=== PATIENT | female | born 1945 | race African-American/Black ===

== ENCOUNTER → 2016-12-10 | Outpatient (CLI) | payer OTHER ==
--- NOTE | 2016-12-10 12:19 | RAD ---
DATE: 12/10/16 EXAM: DIGITAL SCREEN BILAT W/CAD HISTORY: Routine screening COMPARISON: 10/22/15 This study was interpreted with the benefit of Computerized Aided Detection (CAD). TECHNIQUE: Routine CC and MLO views of both breasts are obtained. FINDINGS: Breast Density: FATTY The breast parenchyma is primarily fatty replaced. Breast parenchyma level density A.. No suspicious clustered microcalcifications or architectural distortion seen. Skin and nipples are intact IMPRESSION: Negative exam BI-RADS CATEGORY: 1 NEGATIVE RECOMMENDED FOLLOW-UP: 12M 12 MONTH FOLLOW-UP PQRS compliance statement: Patient information was entered into a reminder system with a target due date for the next mammogram. Mammography is a sensitive method for finding small breast cancers, but it does not detect them all and is not a substitute for careful clinical examination. A negative mammogram does not negate a clinically suspicious finding and should not result in delay in biopsying a clinically suspicious abnormality. "Our facility is accredited by the [employer] Mammography Program."
== END | disposition home or self-care (01) ==
LOC: MAMMO 10:46
PROVIDERS: ATTEND Family Medicine
DX: Z12.31 Encounter for screening mammogram for malignant neoplasm of breast (principal)
CPT/HCPCS: G0202; 77067

== ENCOUNTER 2021-05-14 07:59 | Outpatient (CLI) | payer OTHER, MEDICAID ==
[~2021-05-14] VITALS: Ht 160 cm; Wt 63.6 kg
[2021-05-14] VITALS (11 sets, daily range): BP systolic 91–111; BP diastolic 48–65
[2021-05-14] MEDS ORDERED: IODIXANOL 320 MG/ML 100 ML VIAL. ONE (08:05)
[2021-05-14] MEDS ORDERED: LIDOCAINE 1% Multi-Dose 20 ML VIAL. ONE (08:06)
[2021-05-14] MEDS ORDERED: fentaNYL PF VIAL 100 MCG/2 ML VIAL ONE (08:15)
[2021-05-14] MEDS ORDERED: MIDAZOLAM HCL/PF 5 MG/5 ML VIAL. ONE (08:15)
[2021-05-14] MEDS ORDERED: HEPARIN for IV BOLUS 10,000 UNIT/10 ML VIAL. ONE (08:16)
[2021-05-14 08:53] LABS: HEMATOCRIT 40.7 % (36.0-47.0); HEMOGLOBIN 13.1 g/dL (12.0-15.5); RED BLOOD COUNT 4.43 x10^6/uL (3.50-5.40); RED CELL DISTRIBUTION WIDTH 13.7 % (11.5-14.5); WHITE BLOOD COUNT 9.9 x10^3/uL (4.0-11.0)
[2021-05-14] MEDS ORDERED: BRIM5DRO2 OP (08:53)
[2021-05-14] MEDS ORDERED: ESOM20CA PO (08:53)
[2021-05-14] MEDS ORDERED: ASPI-630 PO (08:53)
[2021-05-14] MEDS ORDERED: trulicity (08:53)
[2021-05-14] MEDS ORDERED: LOVA20TA2 PO (08:53)
[2021-05-14] MEDS ORDERED: SITA50TA PO (08:53)
[2021-05-14] MEDS ORDERED: BIMA2.5D EACHEYE (08:53)
[2021-05-14] MEDS ORDERED: BUDE10.2 IH (08:53)
[2021-05-14] MEDS ORDERED: IBUP-1060 PO (08:53)
[2021-05-14] MEDS ORDERED: PRED-220 PO (08:53)
[2021-05-14] MEDS ORDERED: IPRA3AMP29 NEB (08:53)
[2021-05-14] MEDS ORDERED: CYCL1DRO EACHEYE (08:53)
[2021-05-14] MEDS ORDERED: GLIP5TAB10 PO (08:53)
[2021-05-14] MEDS ORDERED: FEXO180T81 PO (08:53)
[2021-05-14] MEDS ORDERED: VERAPAMIL 5 MG/2 ML VIAL. ONE (09:05)
[2021-05-14] MEDS ORDERED: NITROGLYCERIN 200 MCG/2 ML SYRINGE FOR CATH/VASC LAB. ONE (09:05)
[2021-05-14 09:08] LABS: PROTHROMBIN TIME PATIENT 11.9 SEC (11.7-14.0)
[2021-05-14 09:13] LABS: CALCIUM 8.7 mg/dL (8.5-10.1); CREATININE 1.3 mg/dL (0.6-1.0); GFR 48.3
[2021-05-14] MEDS ORDERED: LIDOCAINE 1% PF 2 ML VIAL. INJ ONE (09:15)
[2021-05-14] MEDS ORDERED: fentaNYL PF VIAL 100 MCG/2 ML VIAL IV ONE (09:15)
[2021-05-14] MEDS ORDERED: NITROGLYCERIN 200 MCG/2 ML SYRINGE FOR CATH/VASC LAB. IART ONE (09:15)
[2021-05-14] MEDS ORDERED: HEPARIN for IV BOLUS 10,000 UNIT/10 ML VIAL. IART ONE (09:15)
[2021-05-14] MEDS ORDERED: IODIXANOL 320 MG/ML 100 ML VIAL. IART ONE (09:15)
[2021-05-14] MEDS ORDERED: VERAPAMIL 5 MG/2 ML VIAL. IART ONE (09:15)
[2021-05-14] MEDS ORDERED: MIDAZOLAM HCL/PF 5 MG/5 ML VIAL. IV ONE (09:15)
[2021-05-14] MEDS ORDERED: LIDOCAINE 1% Multi-Dose 20 ML VIAL. INJ ONE (10:15)
--- NOTE | 2021-05-14 10:17 | CARD ---
MR#: [id number] Date of Study: 05/14/2021 Ordering Physician: GERARD ASHTON, Referring Physician: GERARD ASHTON Tech: Julisa Alexander RT(R) APPROVED REPORT Patient StatusOUT-PATIENT Contact Clerk: Julisa Alexander RT(R) Procedure(s) performed: Aortogram with bilateral lower extremity runoff via right transradial approac h MODERATE SEDATION TIME: 40 MINUTES FLUORO TIME: 3.9 MIN DOSE: 30.1 GYCM2 CONTRAST: 68CC VISI INDICATION FOR PROCEDURE The indication(s) include : Leg pain and peripheral artery disease noted on arterial duplex scan. CASE TECHNIQUE After explaining the risks, benefits, and alternative options, informed consent was obtained from the patient. IV conscious sedation was used throughout procedure with appropriate monitoring and was per formed in the presence of a registered nurse who was an independent trained observer other than the lj dowling performing the procedure. During this case, Fluoroscopy and low osmolar contrast were used f or imaging. Specimen(s) Removed: No Estimated Blood loss: 15 cc's. PROCEDURE NARRATIVE After explaining the risk, benefits and alternative options, informed consent was obtained for hammad t. Patient was brought to the cardiac [facility] and her right wrist was prepped and draped in the usua l fashion after confirming a positive modified Christiano's test. Arterial access was obtained in the [facility] radial artery and a 6 Greek sheath was inserted. 4 Greek R2P PVI multicurve catheter was then adv anced under fluoroscopy guidance and with the tip positioned in the distal descending aorta, aorto il iac angiography was performed. The tip was then advanced over the wire into the right common femoral artery and selective right lower extremity angiography was performed. The catheter was then withdrawn and advanced into the left common femoral artery and selective left lower extremity angiography was performed. Patient tolerated the procedure well. Hemostasis was achieved using TR band. There were no immediate complications. FINDINGS 1. No significant stenosis involving the distal descending aorta 2. The right common iliac artery showed 20% proximal segment stenosis. The left common iliac and bila teral external iliac arteries did not show any significant stenosis. 3. No significant stenosis involving bilateral common femoral arteries 4. The right superficial femoral artery showed 30% stenosis in the mid and distal segments. The left superficial femoral artery showed 30% stenosis in the distal segment. 5. The right popliteal artery showed 30% stenosis. The left popliteal artery did not show any signifi cant stenosis. 6. The right anterior tibial and peroneal arteries were patent without any significant stenosis. The posterior tibial artery showed severe diffuse disease in the mid and distal segments. 7. There is three vessel runoff below the knee left lower extremity. Of note, there is sluggish flow both lower extremities probably secondary to microvascular disease. Conclusion No significant lesions needing intervention were noted. Signed by : Gerard Ashton, Electronically Approved : 05/14/2021 10:16:58
--- NOTE | 2021-05-14 11:30 | NUR ---
Echo at bedside
--- NOTE | 2021-05-14 12:30 | NUR ---
Discharge Note: BRIGID FRIEDMAN Discharge instructions and discharge home medications reviewed with Patient and a copy given. All questions have been answered and understanding verbalized. Dressing to R wrist clean and dry, armboard remains in place The following instructions and handouts were given: sedation, radial site care Discontinued lines and drains: Peripheral IV intact. Patient discharged to Home or Self Care with family member via Wheelchair AVA RN Addendum: 05/14/21 at 1233 by KITTY ROBERTS RN Amended: Links added.
--- NOTE | 2021-05-14 12:40 | CARD ---
MR#: [id number] Date of Study: 05/14/2021 Ordering Physician: GERARD ASHTON, Referring Physician: GERARD ASHTON, Tech: Isabell Kilgore [facility] APPROVED REPORT EXAM: Two-dimensional and M-mode echocardiogram with Doppler and color Doppler. Other Information Quality : AverageHR: 64bpm INDICATION COPD Dyspnea RISK FACTORS Hyperlipidemia Diabetes Smoking 2D DIMENSIONS Left Atrium(2D)2.6 (1.6-4.0cm)IVSd1.2 (0.7-1.1cm) Aortic Root(2D)3.3 (2.0-3.7cm)LVDd4.4 (3.9-5.9cm) LVOT Diameter2.1 (1.8-2.4cm)PWd1.0 (0.7-1.1cm) LVDs2.9 (2.5-4.0cm)FS (%) 34.1 % SV57.0 mlLVEF(%)63.3 (>50%) Aortic Valve AoV Peak Ty.105.8cm/sAoV VTI24.0cm AO Peak GR.4.5mmHgLVOT VTI 19.63cm AO Mean GR.3mmHg Mitral Valve MV E Fgwxipia96.1cm/sMV E Peak Gr.3mmHg MV DECEL [id number] A Vvojjhuf18.0cm/s MV E Mean Gr.1mmHgE/A Ratio0.9 TDI Lateral E' P. V6.37cm/sMedial E' P. V5.60cm/s E/Lateral E'10.2E/Medial E'11.6 Tricuspid Valve TR P. Pgvpvfpj132mt/sRAP [id number] TR Peak Gr.09afUkZGTG63qxKg Pulmonary Vein S1 Eqtjeqxq01.8cm/sS2 Hjbpdtta32.23cm/s D2 Drhabpsk60.2cm/sPVa [id number] LEFT VENTRICLE The left ventricle is normal size. There is borderline to mild concentric left ventricular hypertroph y. The left ventricular systolic function is normal. The Ejection Fraction is 55-60%. There is normal LV segmental wall motion. Transmitral Doppler flow pattern is Grade I-abnormal relaxation pattern. RIGHT VENTRICLE The right ventricle is normal size. There is normal right ventricular wall thickness. The right ventr icular systolic function is normal. ATRIA The left atrium size is normal. The right atrium size is normal. The interatrial septum is intact wit h no evidence for an atrial septal defect or patent foramen ovale as noted on 2-D or Doppler imaging. AORTIC VALVE The aortic valve is normal in structure and function. Doppler and Color Flow revealed trace aortic re gurgitation. There is no significant aortic valvular stenosis. Calculated aortic valve area is 2.71 c m2 with maximum pressure gradient of 5 mmHg and mean pressure gradient of 3 mmHg. MITRAL VALVE The mitral valve is normal in structure and function. There is no evidence of mitral valve prolapse. There is no mitral valve stenosis. Doppler and Color-flow revealed trace mitral regurgitation. TRICUSPID VALVE The tricuspid valve is normal in structure and function. Doppler and Color Flow revealed trace tricus pid regurgitation with an estimated PAP of 29 mmHg. There is no tricuspid valve stenosis. PULMONIC VALVE The pulmonic valve is not well visualized. Doppler and Color Flow revealed no pulmonic valvular regur gitation. GREAT VESSELS The aortic root is normal in size. The ascending aorta is normal in size. The IVC is normal in size a nd collapses >50% with inspiration. PERICARDIAL EFFUSION There is no evidence of significant pericardial effusion. Critical Notification Critical Value: No <Conclusion> The left ventricular systolic function is normal. The Ejection Fraction is 55-60%. There is normal LV segmental wall motion. Transmitral Doppler flow pattern is Grade I-abnormal relaxation pattern. Trace tricuspid regurgitation with an estimated PAP of 29 mmHg. There is no evidence of significant pericardial effusion. Signed by : Gerard Ashton, Electronically Approved : 05/14/2021 12:40:00
== END 2021-05-14 12:30 | disposition home or self-care (01) ==
LOC: CCL 07:59
PROVIDERS: ATTEND Internal Medicine Cardiovascular Disease
DX: I73.9 Peripheral vascular disease, unspecified (principal); R06.00 Dyspnea, unspecified; I10 Essential (primary) hypertension; E78.00 Pure hypercholesterolemia, unspecified; E11.9 Type 2 diabetes mellitus without complications; J44.9 Chronic obstructive pulmonary disease, unspecified; F17.210 Nicotine dependence, cigarettes, uncomplicated; Z87.440 Personal history of urinary (tract) infections; Z90.710 Acquired absence of both cervix and uterus; Z98.890 Other specified postprocedural states; Z90.49 Acquired absence of other specified parts of digestive tract; Z79.899 Other long term (current) drug therapy; Z79.84 Long term (current) use of oral hypoglycemic drugs; Z79.82 Long term (current) use of aspirin
CPT/HCPCS: 36245; 36415; 75625; 75716; 80048; 85027; 85610; 93306; 99152; 99153; C1769; J1644; J2250; J3010; J3490; Q9967